=== PATIENT | male | born 1980 | race Two or more races ===

== ENCOUNTER 2021-03-04 16:34 | Inpatient (IN) | payer MEDICAID, OTHER ==
[~2021-03-04] VITALS: Ht 162.6 cm; Wt 72.4 kg
[2021-03-04] MEDS ORDERED: traMADol HCL 50 MG TAB PO ONE (17:00)
[2021-03-04] MEDS ORDERED: ONDANSETRON ODT 4 MG TAB PO ONE (17:00)
[2021-03-04 17:26] LABS: Urine Bacteria FEW /hpf (None Seen); Urine Blood Negative /uL (Negative); Urine Mucus FEW (None Seen); Urine WBC <1 /hpf (0 - 3)
[2021-03-04] MEDS ORDERED: PROMETHAZINE HCL 25 MG/ML 1ML IV ONE (18:30)
[2021-03-04] MEDS ORDERED: MORPHINE SULFATE 4 MG/ML SYR/VIAL IV ONE (18:30)
[2021-03-04 18:53] LABS: Basophils # (auto) 0.1 10 ^3/uL (0-0.2); Basophils % (auto) 0.6 % (0.0-2.0); Eosinophils # (auto) 0.3 10 ^3/uL (0-0.8); Eosinophils % (auto) 2.5 % (0.0-7.0); Hematocrit 44.4 % (41.0-53.0); Hemoglobin 15.6 g/dL (13.5-17.5); Lymphocytes # (auto) 1.9 10 ^3/uL (0.4-5.4); Lymphocytes % (auto) 14.7 % (10.0-50.0); Mean Corpuscular Hemoglobin 29.2 pg (28.0-32.0); Mean Corpuscular Hgb Conc. 35.1 g/dL (32.0-36.0); Mean Corpuscular Volume 83.3 fL (80.0-100.0); Monocytes # (auto) 1.1 10 ^3/uL (0-1.3); Monocytes % (auto) 8.8 % (0.0-12.0); Neutrophils # (auto) 9.5 10 ^3/uL (1.6-8.6); Neutrophils % (auto) 73.4 % (37.0-80.0); Nucleated Red Blood Cells % 0.2 %; Platelet Count (auto) 284 10^3/uL (140-450); Red Blood Cells 5.33 10^6/uL (4.5-5.90); Red Cell Distribution Width 13.1 % (11.8-14.3)
[2021-03-04 19:10] LABS: Albumin 3.7 g/dL (3.4-5.0); Potassium 4.2 mmol/L (3.5-5.1)
[2021-03-04 19:12] LABS: BUN/Creatinine Ratio 10.2
[2021-03-04 19:15] LABS: Bilirubin, Total 0.4 mg/dL (0.2-1.0); Total Protein 7.9 g/dL (6.4-8.2)
[2021-03-04] MEDS ORDERED: ACETAMINOPHEN 325 MG TAB PO PRN (23:45)
[2021-03-04] MEDS ORDERED: NITROGLYCERIN 0.4 MG SL TAB SL PRN (23:45)
[2021-03-04] MEDS ORDERED: DEXTROSE (50%) 50ML SYRG IV PRN (23:45)
[2021-03-04] MEDS ORDERED: MORPHINE SULF INJ 2 MG/ML SYRINGE 1ML IV PRN (23:45)
[2021-03-05] MEDS: SODIUM CHLORIDE 0.9% 1,000 ML IV SCH ×2 (00:04→17:11)
[2021-03-05] MEDS: HYDROcodone-ACET 5/325MG TAB PO PRN ×4 (00:18→21:21)
[2021-03-05] MEDS: hydrALAZINE HCL 10 MG TAB PO PRN ×3 (04:21→17:14)
[2021-03-05 06:52] LABS: Albumin 3.3 g/dL (3.4-5.0); Calcium 8.7 mg/dL (8.5-10.1); Potassium 4.2 mmol/L (3.5-5.1)
[2021-03-05 06:55] LABS: BUN/Creatinine Ratio 10.2; Bilirubin, Total 0.4 mg/dL (0.2-1.0)
[2021-03-05] MEDS: ACCU-CHEK COMFORT CURVE STRIP VI SCH ×4 (06:56→21:05)
[2021-03-05] MEDS: InsuLIN REG 1unit/0.01ml Soln (100units/ml) SC SCH ×4 (06:59→21:16)
[2021-03-05] MEDS: cefTRIAXone 1GM/50ML D5W 50 ML IV SCH (09:00)
[2021-03-05] MEDS ORDERED: MANNITOL FTV 25% 12.5 GM/50 ML 50 ML IV ONE (10:00)
[2021-03-05] MEDS ORDERED: SODIUM CHLORIDE 0.9% 1,000 ML IV ONE ×3 (10:00→14:00)
[2021-03-05] MEDS: FAMOTIDINE (10MG/ML) 2ML VL IV SCH ×2 (10:03→21:05)
[2021-03-05] MEDS ORDERED: MORPHINE SULF INJ 2 MG/ML SYRINGE 1ML IV ONE (12:15)
[2021-03-05 12:26] LABS: INR 0.96 (0.9-1.15)
[2021-03-05] MEDS ORDERED: KETOROLAC TROMETH 30 MG/ML 1ML VIAL IV ONE (14:45)
[2021-03-05] MEDS: MORPHINE SULF INJ 2 MG/ML SYRINGE 1ML IV PRN ×2 (16:31→20:28)
[2021-03-05 17:00] VITALS: BP 166/104
[2021-03-05] MEDS: TAMSULOSIN HYDROCHLORIDE 0.4 MG CAP PO SCH (17:14)
[2021-03-05] MEDS ORDERED: MONT10TA42 PO (18:20)
[2021-03-05] MEDS ORDERED: ATEN25TA PO (18:20)
[2021-03-05] MEDS ORDERED: GLYB5TAB8 PO (18:20)
[2021-03-05] MEDS ORDERED: OMEP-260 PO (18:20)
[2021-03-05] MEDS ORDERED: LORA-483 PO (18:20)
[2021-03-05] MEDS ORDERED: METF-372 PO (18:20)
[2021-03-05 22:00] VITALS: BP 147/101
[2021-03-06 05:00] VITALS: BP 148/89
[2021-03-06 05:50] LABS: Basophils # (auto) 0 10 ^3/uL (0-0.2); Basophils % (auto) 0.4 % (0.0-2.0); Eosinophils # (auto) 0.2 10 ^3/uL (0-0.8); Eosinophils % (auto) 1.6 % (0.0-7.0); Hematocrit 40.2 % (41.0-53.0); Lymphocytes # (auto) 1.8 10 ^3/uL (0.4-5.4); Lymphocytes % (auto) 14.3 % (10.0-50.0); Mean Corpuscular Hgb Conc. 34.7 g/dL (32.0-36.0); Mean Corpuscular Volume 83.5 fL (80.0-100.0); Monocytes # (auto) 1.1 10 ^3/uL (0-1.3); Monocytes % (auto) 8.9 % (0.0-12.0); Neutrophils # (auto) 9.3 10 ^3/uL (1.6-8.6); Neutrophils % (auto) 74.8 % (37.0-80.0); Nucleated Red Blood Cells % 0.1 %; Platelet Count (auto) 268 10^3/uL (140-450); Red Blood Cells 4.82 10^6/uL (4.5-5.90); White Blood Cell 12.5 10^3/uL (4.4-10.8)
[2021-03-06 06:14] LABS: Potassium 3.8 mmol/L (3.5-5.1)
[2021-03-06] MEDS: ACCU-CHEK COMFORT CURVE STRIP VI SCH ×4 (06:17→21:38)
[2021-03-06] MEDS: MORPHINE SULF INJ 2 MG/ML SYRINGE 1ML IV PRN ×6 (06:18→23:11)
[2021-03-06 06:19] LABS: BUN/Creatinine Ratio 10.6; Calcium 8.2 mg/dL (8.5-10.1)
[2021-03-06] MEDS: InsuLIN REG 1unit/0.01ml Soln (100units/ml) SC SCH ×4 (06:23→21:46)
[2021-03-06] MEDS: cefTRIAXone 1GM/50ML D5W 50 ML IV SCH (07:47)
[2021-03-06] MEDS: SODIUM CHLORIDE 0.9% 1,000 ML IV SCH (07:48)
[2021-03-06] MEDS: hydrALAZINE HCL 10 MG TAB PO PRN ×3 (07:48→17:06)
[2021-03-06] MEDS: HYDROcodone-ACET 5/325MG TAB PO PRN ×4 (07:49→21:39)
[2021-03-06] MEDS: FAMOTIDINE (10MG/ML) 2ML VL IV SCH ×2 (09:35→21:38)
[2021-03-06 09:36] VITALS: BP 170/102
[2021-03-06 16:58] VITALS: BP 163/115
[2021-03-06] MEDS: TAMSULOSIN HYDROCHLORIDE 0.4 MG CAP PO SCH (17:05)
[2021-03-06 22:00] VITALS: BP 143/97
[2021-03-07] MEDS: HYDROcodone-ACET 5/325MG TAB PO PRN ×6 (00:39→22:42)
[2021-03-07] MEDS ORDERED: HYDROmorphone HCL 2 MG/ML VL IV ONE (02:15)
[2021-03-07] MEDS: MORPHINE SULF INJ 2 MG/ML SYRINGE 1ML IV PRN ×3 (03:46→10:11)
[2021-03-07] MEDS: SODIUM CHLORIDE 0.9% 1,000 ML IV SCH ×2 (04:38→17:52)
[2021-03-07 05:00] VITALS: BP 148/100
[2021-03-07] MEDS: ACCU-CHEK COMFORT CURVE STRIP VI SCH ×4 (06:22→22:41)
[2021-03-07] MEDS: InsuLIN REG 1unit/0.01ml Soln (100units/ml) SC SCH ×4 (06:23→22:49)
[2021-03-07 06:40] LABS: Basophils # (auto) 0.1 10 ^3/uL (0-0.2); Basophils % (auto) 0.5 % (0.0-2.0); Eosinophils # (auto) 0.1 10 ^3/uL (0-0.8); Eosinophils % (auto) 0.7 % (0.0-7.0); Hematocrit 38.7 % (41.0-53.0); Hemoglobin 13.6 g/dL (13.5-17.5); Lymphocytes # (auto) 0.9 10 ^3/uL (0.4-5.4); Lymphocytes % (auto) 6.5 % (10.0-50.0); Mean Corpuscular Hemoglobin 29.5 pg (28.0-32.0); Mean Corpuscular Hgb Conc. 35.3 g/dL (32.0-36.0); Mean Corpuscular Volume 83.5 fL (80.0-100.0); Monocytes % (auto) 7.6 % (0.0-12.0); Neutrophils # (auto) 11.5 10 ^3/uL (1.6-8.6); Neutrophils % (auto) 84.7 % (37.0-80.0); Platelet Count (auto) 252 10^3/uL (140-450); Red Blood Cells 4.63 10^6/uL (4.5-5.90); White Blood Cell 13.6 10^3/uL (4.4-10.8)
[2021-03-07 06:53] LABS: BUN/Creatinine Ratio 10.3; Potassium 3.9 mmol/L (3.5-5.1)
[2021-03-07] MEDS: cefTRIAXone 1GM/50ML D5W 50 ML IV SCH (08:24)
[2021-03-07] MEDS: amLODIPine BESYLATE 5 MG TAB PO SCH (08:24)
[2021-03-07] MEDS: hydrALAZINE HCL 10 MG TAB PO PRN (08:25)
[2021-03-07 09:00] VITALS: BP 181/120
[2021-03-07 10:24] VITALS: BP 124/66
[2021-03-07] MEDS: FAMOTIDINE (10MG/ML) 2ML VL IV SCH ×2 (11:35→22:41)
[2021-03-07] MEDS: HYDROmorphone HCL 2 MG/ML VL IV PRN ×4 (11:46→23:37)
[2021-03-07] MEDS ORDERED: DOCUSATE SOD 100 MG CAP PO PRN (11:56)
[2021-03-07 12:44] VITALS: BP 157/110
[2021-03-07 17:00] VITALS: BP 141/92
[2021-03-07] MEDS: TAMSULOSIN HYDROCHLORIDE 0.4 MG CAP PO SCH (17:48)
[2021-03-07 22:00] VITALS: BP 140/91
[2021-03-08] MEDS: HYDROmorphone HCL 2 MG/ML VL IV PRN ×4 (02:30→23:12)
[2021-03-08] MEDS: SODIUM CHLORIDE 0.9% 1,000 ML IV SCH (02:34)
[2021-03-08] MEDS: HYDROcodone-ACET 5/325MG TAB PO PRN ×4 (03:35→20:47)
[2021-03-08 05:00] VITALS: BP 133/87
[2021-03-08] MEDS: ACCU-CHEK COMFORT CURVE STRIP VI SCH ×4 (06:21→21:31)
[2021-03-08] MEDS: InsuLIN REG 1unit/0.01ml Soln (100units/ml) SC SCH ×4 (06:23→21:32)
[2021-03-08 06:26] LABS: Basophils # (auto) 0.1 10 ^3/uL (0-0.2); Basophils % (auto) 0.6 % (0.0-2.0); Eosinophils # (auto) 0.4 10 ^3/uL (0-0.8); Eosinophils % (auto) 4.1 % (0.0-7.0); Hematocrit 37.3 % (41.0-53.0); Hemoglobin 13.2 g/dL (13.5-17.5); Lymphocytes # (auto) 1.5 10 ^3/uL (0.4-5.4); Lymphocytes % (auto) 16.7 % (10.0-50.0); Mean Corpuscular Hemoglobin 29.7 pg (28.0-32.0); Mean Corpuscular Hgb Conc. 35.3 g/dL (32.0-36.0); Mean Corpuscular Volume 84.1 fL (80.0-100.0); Monocytes # (auto) 0.9 10 ^3/uL (0-1.3); Monocytes % (auto) 10.1 % (0.0-12.0); Neutrophils # (auto) 6.3 10 ^3/uL (1.6-8.6); Neutrophils % (auto) 68.5 % (37.0-80.0); Nucleated Red Blood Cells % 0.2 %; Platelet Count (auto) 261 10^3/uL (140-450); Red Blood Cells 4.44 10^6/uL (4.5-5.90); Red Cell Distribution Width 12.9 % (11.8-14.3); White Blood Cell 9.2 10^3/uL (4.4-10.8)
[2021-03-08 06:42] LABS: BUN/Creatinine Ratio 9.4; Calcium 8.3 mg/dL (8.5-10.1); Potassium 3.5 mmol/L (3.5-5.1)
[2021-03-08] MEDS: amLODIPine BESYLATE 5 MG TAB PO SCH (08:31)
[2021-03-08] MEDS: FAMOTIDINE (10MG/ML) 2ML VL IV SCH ×2 (08:35→21:30)
[2021-03-08] MEDS: cefTRIAXone 1GM/50ML D5W 50 ML IV SCH (08:35)
[2021-03-08 09:00] VITALS: BP 150/94
[2021-03-08] MEDS: SENNA 8.6 MG TAB PO SCH (10:00)
[2021-03-08 13:00] VITALS: BP_SYST 147; BP_SYST 154; BP_DIAS 69; BP_DIAS 98
[2021-03-08] MEDS ORDERED: LIDOCAINE 2%HCL (LOCAL ANESTH.) INJ 20ML MDV ONE (15:03)
[2021-03-08] MEDS ORDERED: fentaNYL CITRATE 100 MCG/2 ML VL ONE (15:10)
[2021-03-08] MEDS ORDERED: MIDAZOLAM HCL 1MG/1ML-2 ML VIAL ONE (15:10)
[2021-03-08] MEDS ORDERED: IODIXANOL 320MG/ML 100ML BTL IV ONE (15:11)
[2021-03-08] MEDS: TAMSULOSIN HYDROCHLORIDE 0.4 MG CAP PO SCH (17:43)
[2021-03-08 22:00] VITALS: BP 151/112
[2021-03-09] MEDS: SODIUM CHLORIDE 0.9% 1,000 ML IV SCH (04:11)
[2021-03-09 05:00] VITALS: BP 148/110
[2021-03-09] MEDS: ACCU-CHEK COMFORT CURVE STRIP VI SCH ×3 (06:08→17:16)
[2021-03-09] MEDS: InsuLIN REG 1unit/0.01ml Soln (100units/ml) SC SCH ×3 (06:20→17:19)
[2021-03-09] MEDS: SENNA 8.6 MG TAB PO SCH (08:25)
[2021-03-09] MEDS: cefTRIAXone 1GM/50ML D5W 50 ML IV SCH (08:27)
[2021-03-09] MEDS: amLODIPine BESYLATE 5 MG TAB PO SCH (08:27)
[2021-03-09 09:17] VITALS: BP 142/102
[2021-03-09] MEDS: FAMOTIDINE (10MG/ML) 2ML VL IV SCH (10:08)
[2021-03-09] MEDS: HYDROcodone-ACET 5/325MG TAB PO PRN (10:35)
[2021-03-09] MEDS ORDERED: TAMS1CAP25 PO (11:42)
[2021-03-09 13:00] VITALS: BP 138/92
[2021-03-09 16:45] VITALS: BP 143/94
[2021-03-09] MEDS: TAMSULOSIN HYDROCHLORIDE 0.4 MG CAP PO SCH (17:20)
== END 2021-03-09 18:03 | disposition home health service (06) | DRG 465 ==
LOC: ER 16:34 → TELE 23:37 → TELE-WESTW 03-05 16:31
PROVIDERS: ADMIT Nurse Practitioner Family; ATTEND Internal Medicine Pulmonary Disease
PROC: 0T9430Z Drainage of Left Kidney Pelvis with Drainage Device, Percutaneous Approach (ICD-10-PCS; principal; 2021-03-09)
PROC: BT12YZZ Fluoroscopy of Left Kidney using Other Contrast (ICD-10-PCS; 2021-03-09)
DX: N13.2 Hydronephrosis with renal and ureteral calculous obstruction (principal); K76.0 Fatty (change of) liver, not elsewhere classified; E11.65 Type 2 diabetes mellitus with hyperglycemia; R65.10 Systemic inflammatory response syndrome (SIRS) of non-infectious origin without acute organ dysfunction; I10 Essential (primary) hypertension; I16.0 Hypertensive urgency; Z79.4 Long term (current) use of insulin; Z93.6 Other artificial openings of urinary tract status; Z20.822 Contact with and (suspected) exposure to COVID-19
CPT/HCPCS: 36415; 71045; 74176; 74425; 76775; 76942; 80048; 80053; 81001; 82962; 83036; 85025; 85610; 85730; 87426; 96365; 96366; 96368; 96375; 96376; 99152; 99153; C1729; G0378; J0696; J1815; J1885; J2250; J3490; Q0162; Q9967

== ENCOUNTER 2021-03-16 14:59 | Inpatient (IN) | payer MEDICAID ==
[~2021-03-16] VITALS: Ht 162.6 cm; Wt 54.5 kg
[~2021-03-16 14:59] MED LIST: ATEN25TA PO; GLYB5TAB8 PO; LORA-483 PO; METF-372 PO; MONT10TA42 PO; OMEP-260 PO; TAMS1CAP25 PO
[2021-03-16] MEDS ORDERED: SODIUM CHLORIDE 0.9% 1,000 ML IVB ONE (16:30)
[2021-03-16] MEDS ORDERED: KETOROLAC TROMETH 30 MG/ML 1ML VIAL IV ONE (16:30)
[2021-03-16 17:12] LABS: Basophils # (auto) 0.1 10 ^3/uL (0-0.2); Eosinophils # (auto) 0.5 10 ^3/uL (0-0.8); Eosinophils % (auto) 5.6 % (0.0-7.0); Monocytes # (auto) 0.8 10 ^3/uL (0-1.3); Neutrophils # (auto) 5.2 10 ^3/uL (1.6-8.6)
[2021-03-16 17:15] LABS: Hematocrit 46.1 % (41.0-53.0); Hemoglobin 16.1 g/dL (13.5-17.5); Lymphocytes # (auto) 3.1 10 ^3/uL (0.4-5.4); Lymphocytes % (auto) 31.3 % (10.0-50.0); Mean Corpuscular Volume 82.9 fL (80.0-100.0); Monocytes % (auto) 8.3 % (0.0-12.0); Neutrophils % (auto) 53.8 % (37.0-80.0); Nucleated Red Blood Cells % 0.5 %; Platelet Count (auto) 513 10^3/uL (140-450); Red Blood Cells 5.56 10^6/uL (4.5-5.90); White Blood Cell 9.8 10^3/uL (4.4-10.8)
[2021-03-16 17:29] LABS: Potassium 4.1 mmol/L (3.5-5.1)
[2021-03-16 17:30] LABS: Albumin 3.9 g/dL (3.4-5.0); Calcium 10.3 mg/dL (8.5-10.1)
[2021-03-16 17:31] LABS: Bilirubin, Total 0.2 mg/dL (0.2-1.0); Total Protein 8.7 g/dL (6.4-8.2)
[2021-03-16] MEDS ORDERED: DEXTROSE (50%) 50ML SYRG IV PRN (17:45)
[2021-03-16] MEDS ORDERED: HYDROcodone-ACET 5/325MG TAB PO PRN (19:00)
[2021-03-16] MEDS ORDERED: ONDANSETRON HCL 4 MG/2 ML VIAL IV PRN (19:00)
[2021-03-16] MEDS ORDERED: ACETAMINOPHEN 500 MG TAB PO PRN (19:00)
[2021-03-16 21:50] LABS: INR 0.91 (0.9-1.15)
[2021-03-16 22:00] VITALS: BP 158/102
[2021-03-16] MEDS: InsuLIN REG 1unit/0.01ml Soln (100units/ml) SC SCH (22:28)
[2021-03-16] MEDS: ACCU-CHEK COMFORT CURVE STRIP VI SCH (22:30)
[2021-03-16] MEDS: SODIUM CHLORIDE 0.9% 1,000 ML IV SCH (22:30)
[2021-03-16] MEDS: MORPHINE SULF INJ 2 MG/ML SYRINGE 1ML IV PRN (22:54)
[2021-03-17] MEDS: SODIUM CHLORIDE 0.9% 1,000 ML IV SCH ×3 (01:45→18:14)
[2021-03-17] MEDS ORDERED: HYDR1TAB97 PO (02:07)
[2021-03-17] MEDS ORDERED: CEPH500C PO (02:07)
[2021-03-17 03:45] LABS: BUN/Creatinine Ratio 17.2; Calcium 8.7 mg/dL (8.5-10.1)
[2021-03-17 04:41] VITALS: BP 132/80
[2021-03-17] MEDS: ACCU-CHEK COMFORT CURVE STRIP VI SCH ×4 (06:06→22:24)
[2021-03-17] MEDS: InsuLIN REG 1unit/0.01ml Soln (100units/ml) SC SCH ×4 (06:08→22:23)
[2021-03-17 09:00] VITALS: BP 139/92
[2021-03-17] MEDS: metFORMIN HYDROCHLORIDE 500 MG TAB PO SCH ×2 (09:03→18:14)
[2021-03-17] MEDS: glyBURIDE 5 MG TAB PO SCH (09:03)
[2021-03-17] MEDS: LORATADINE 10 MG TAB PO SCH (09:04)
[2021-03-17] MEDS: ATENOLOL 25 MG TAB PO SCH (09:04)
[2021-03-17] MEDS: MONTELUKAST SODIUM 10 MG TAB PO SCH (09:05)
[2021-03-17] MEDS: hydrALAZINE HCL 20 MG/ML VL IV PRN (12:46)
[2021-03-17 13:00] VITALS: BP 150/107
[2021-03-17 16:47] VITALS: BP 133/78
[2021-03-17] MEDS ORDERED: TAMSULOSIN HYDROCHLORIDE 0.4 MG CAP PO SCH (18:00)
[2021-03-17] MEDS: MORPHINE SULF INJ 2 MG/ML SYRINGE 1ML IV PRN (19:51)
[2021-03-17 21:49] VITALS: BP 148/111
[2021-03-17 21:50] VITALS: BP 150/107
[2021-03-18] MEDS: SODIUM CHLORIDE 0.9% 1,000 ML IV SCH ×2 (01:23→08:15)
[2021-03-18 04:41] VITALS: BP 139/85
[2021-03-18 05:27] LABS: Basophils # (auto) 0.1 10 ^3/uL (0-0.2); Basophils % (auto) 0.8 % (0.0-2.0); Eosinophils # (auto) 0.6 10 ^3/uL (0-0.8); Eosinophils % (auto) 7.1 % (0.0-7.0); Hematocrit 39.7 % (41.0-53.0); Hemoglobin 13.9 g/dL (13.5-17.5); Lymphocytes # (auto) 2.6 10 ^3/uL (0.4-5.4); Lymphocytes % (auto) 30.4 % (10.0-50.0); Mean Corpuscular Hemoglobin 29.2 pg (28.0-32.0); Mean Corpuscular Hgb Conc. 35.1 g/dL (32.0-36.0); Mean Corpuscular Volume 83.2 fL (80.0-100.0); Monocytes # (auto) 0.6 10 ^3/uL (0-1.3); Monocytes % (auto) 7.3 % (0.0-12.0); Neutrophils # (auto) 4.6 10 ^3/uL (1.6-8.6); Neutrophils % (auto) 54.4 % (37.0-80.0); Nucleated Red Blood Cells % 0.1 %; Platelet Count (auto) 405 10^3/uL (140-450); Red Blood Cells 4.77 10^6/uL (4.5-5.90); Red Cell Distribution Width 13.1 % (11.8-14.3); White Blood Cell 8.5 10^3/uL (4.4-10.8)
[2021-03-18 05:56] LABS: Potassium 3.9 mmol/L (3.5-5.1)
[2021-03-18 06:00] LABS: Calcium 8.4 mg/dL (8.5-10.1)
[2021-03-18] MEDS: ACCU-CHEK COMFORT CURVE STRIP VI SCH ×2 (06:09→11:30)
[2021-03-18] MEDS: InsuLIN REG 1unit/0.01ml Soln (100units/ml) SC SCH ×2 (06:13→11:30)
[2021-03-18] MEDS: metFORMIN HYDROCHLORIDE 500 MG TAB PO SCH (08:14)
[2021-03-18] MEDS: glyBURIDE 5 MG TAB PO SCH (08:15)
[2021-03-18] MEDS ORDERED: MIDAZOLAM HCL 1MG/1ML-2 ML VIAL ONE (08:31)
[2021-03-18] MEDS ORDERED: fentaNYL CITRATE 100 MCG/2 ML VL ONE (08:31)
[2021-03-18] MEDS ORDERED: PROPOFOL 10 MG/ML 20 ML IV ONE (08:32)
[2021-03-18] MEDS ORDERED: LIDOCAINE 2% (LOCAL ANESTH.) PF 5ml SDV ONE (08:32)
[2021-03-18] MEDS ORDERED: GLYCOPYRROLATE 0.2 MG/ML 1ML VIAL ONE (08:32)
[2021-03-18] MEDS ORDERED: ONDANSETRON HCL 4 MG/2 ML VIAL ONE (08:32)
[2021-03-18 09:00] VITALS: BP 143/96
[2021-03-18] MEDS ORDERED: CIPROFLOXACIN 400MG/200ML 200 ML IV ONE (09:04)
[2021-03-18] MEDS ORDERED: LIDOCAINE 2% JELLY 11ml (GLYDO) ONE (09:39)
[2021-03-18] MEDS ORDERED: IOHEXOL 300 MG/ML 100ML BOTTLE IJ ONE (09:39)
[2021-03-18] MEDS ORDERED: SUCCINYLCHOLINE CHLORIDE 20 MG/ML 10ML VIAL IV ONE (09:54)
[2021-03-18] MEDS ORDERED: KETOROLAC TROMETH 30 MG/ML 1ML VIAL IV ONE (09:54)
[2021-03-18] MEDS: LORATADINE 10 MG TAB PO SCH (10:00)
[2021-03-18] MEDS: MONTELUKAST SODIUM 10 MG TAB PO SCH (10:00)
[2021-03-18] MEDS: ATENOLOL 25 MG TAB PO SCH (10:00)
[2021-03-18] MEDS ORDERED: MEPERIDINE HCL (50 MG/ML) 1 ML VIAL ONE (10:04)
[2021-03-18] MEDS ORDERED: FAMOTIDINE (10MG/ML) 2ML VL IV ONE (10:06)
[2021-03-18] MEDS ORDERED: ONDANSETRON HCL 4 MG/2 ML VIAL IV PRN (11:30)
[2021-03-18] MEDS: HYDROmorphone HCL 2 MG/ML VL IV PRN ×2 (11:32→11:47)
[2021-03-18] MEDS: MORPHINE SULF INJ 2 MG/ML SYRINGE 1ML IV PRN (12:28)
[2021-03-18] MEDS: hydrALAZINE HCL 20 MG/ML VL IV PRN (12:28)
[2021-03-18 13:00] VITALS: BP 153/105
[2021-03-18 14:32] VITALS: BP 153/105
[2021-03-18 17:00] VITALS: BP 155/94
== END 2021-03-18 17:32 | disposition home health service (06) | DRG 446 ==
LOC: ER 14:59 → OVERFLOW 17:41 → CENTRAL 20:33
PROVIDERS: ADMIT Nurse Practitioner Acute Care; ATTEND Internal Medicine Pulmonary Disease
PROC: 0TC78ZZ Extirpation of Matter from Left Ureter, Via Natural or Artificial Opening Endoscopic (ICD-10-PCS; principal; 2021-03-18 09:54)
DX: N13.2 Hydronephrosis with renal and ureteral calculous obstruction (principal); Z93.6 Other artificial openings of urinary tract status; K76.0 Fatty (change of) liver, not elsewhere classified; E11.9 Type 2 diabetes mellitus without complications; Z20.822 Contact with and (suspected) exposure to COVID-19; I10 Essential (primary) hypertension; Z79.84 Long term (current) use of oral hypoglycemic drugs; Z79.899 Other long term (current) drug therapy
CPT/HCPCS: 36415; 74018; 74176; 76000; 80048; 80053; 82962; 85025; 85610; 87081; 87426; 96361; 96374; G0378; J0330; J1815; J1885; J2001; J2250; J2405; J2704; J3490

== ENCOUNTER 2023-06-29 13:07 | Emergency (ER) | payer MEDICAID ==
[~2023-06-29] VITALS: Ht 165.1 cm; Wt 68.2 kg
[~2023-06-29 13:07] MED LIST changes: +CEPH500C PO; +HYDR1TAB97 PO; +MONT-8 PO; -MONT10TA42 PO; -OMEP-260 PO; +OMEP1CAP70 PO
[2023-06-29] MEDS ORDERED: KETOROLAC TROMETH 30 MG/ML 1ML VIAL IV ONE (13:45)
[2023-06-29] MEDS ORDERED: ONDANSETRON HCL 4 MG/2 ML VIAL IV ONE (13:45)
[2023-06-29 14:32] LABS: Basophils # (auto) 0 10 ^3/uL (0-0.2); Basophils % (auto) 0.6 % (0.0-2.0); Eosinophils # (auto) 0.6 10 ^3/uL (0-0.8); Eosinophils % (auto) 8.4 % (0.0-7.0); Hematocrit 44.1 % (41.0-53.0); Hemoglobin 14.7 g/dL (13.5-17.5); Lymphocytes # (auto) 2.2 10 ^3/uL (0.4-5.4); Mean Corpuscular Hemoglobin 27.1 pg (28.0-32.0); Mean Corpuscular Hgb Conc. 33.5 g/dL (32.0-36.0); Mean Corpuscular Volume 81.1 fL (80.0-100.0); Monocytes # (auto) 0.5 10 ^3/uL (0-1.3); Monocytes % (auto) 6.3 % (0.0-12.0); Neutrophils # (auto) 4.1 10 ^3/uL (1.6-8.6); Neutrophils % (auto) 54.7 % (37.0-80.0); Red Blood Cells 5.43 10^6/uL (4.5-5.90); Red Cell Distribution Width 13.8 % (11.8-14.3); White Blood Cell 7.4 10^3/uL (4.4-10.8)
[2023-06-29 14:48] LABS: INR 0.95 (0.9-1.15); Partial Thromboplastin Time 24.9 SEC (24.5-34.5)
[2023-06-29 14:55] LABS: Alanine Aminotransferase 46 U/L (7-40); Albumin 4.4 g/dL (3.2-4.8); Alkaline Phosphatase 82 U/L (46-116); Anion Gap 5 (5-15); Aspartate Aminotransferase 19 U/L (13-40); BUN/Creatinine Ratio 10.2 (10.0-20.0); Bilirubin, Total 0.3 mg/dL (0.2-1.0); Blood Urea Nitrogen 10 mg/dL (9-23); Calcium 9.5 mg/dL (8.7-10.4); Carbon Dioxide 26 mmol/L (20-30); Chloride 102 mmol/L (98-107); Glucose 348 mg/dL (74-106); Lipase 49 U/L (12-53); Magnesium 1.6 mg/dL (1.6-2.6); Potassium 4.3 mmol/L (3.5-5.1); Sodium 133 mmol/L (136-145); Total Protein 7.3 g/dL (5.7-8.2)
[2023-06-29 16:03] LABS: Urine Bacteria NONE SEEN /hpf (None Seen); Urine Blood Negative /uL (Negative); Urine Clarity Clear (Clear); Urine Color Colorless (Yellow); Urine Protein, UAD Negative (Negative); Urine Specific Gravity 1.021 (1.001-1.035); Urine Urobilinogen Normal (Negative); Urine WBC <1 /hpf (0 - 3); Urine pH 5.5 (5.0-8.0)
[2023-06-29] MEDS ORDERED: ZOFR4T PO (16:20)
[2023-06-29] MEDS ORDERED: TRAM50TA2 PO (16:20)
[2023-06-29 16:36] VITALS: BP 138/94; PULSE 58; RESP 17; TEMP 98; O2SAT 100
== END 2023-06-29 16:38 | disposition home or self-care (01) ==
LOC: ER 13:07
DX: R10.31 Right lower quadrant pain (principal); R10.32 Left lower quadrant pain; I10 Essential (primary) hypertension; E11.9 Type 2 diabetes mellitus without complications; Z87.442 Personal history of urinary calculi; Z98.890 Other specified postprocedural states; Z79.1 Long term (current) use of non-steroidal anti-inflammatories (NSAID); Z79.84 Long term (current) use of oral hypoglycemic drugs; Z79.899 Other long term (current) drug therapy
CPT/HCPCS: 36415; 74176; 80053; 81001; 83690; 83735; 85025; 85610; 85730; 96374; 99285; J1885